=== PATIENT | female | born 1950 | race African-American/Black ===

== ENCOUNTER 2017-02-20 16:20 | Emergency (ER) | payer MEDICARE ==
[~2017-02-20] VITALS: Ht 175.3 cm; Wt 61.2 kg
[2017-02-20 16:39] VITALS: BP 171/76
[2017-02-20] MEDS ORDERED: DIPH25CA58 PO (16:46)
--- NOTE | 2017-02-20 16:48 | PHYS DOC ---
Adult General Chief Complaint Chief Complaint: INSECT BITE HPI HPI Patient is a 66 year old female presents to the emergency department with complaints of an insect bite beneath the right eye. Patient states she has mild amount of swelling. She has no visual disturbance or eye pain. She's had no shortness of breath. Review of Systems Review of Systems Constitutional: Denies fever or chills [] Eyes: Denies change in visual acuity, redness, or eye pain, mild swelling beneath left eye [] HENT: Denies nasal congestion or sore throat [] Respiratory: Denies cough or shortness of breath [] Cardiovascular: No additional information not addressed in HPI [] GI: Denies abdominal pain, nausea, vomiting, bloody stools or diarrhea [] : Denies dysuria or hematuria [] Musculoskeletal: Denies back pain or joint pain [] Integument: Denies rash or skin lesions [] Neurologic: Denies headache, focal weakness or sensory changes [] Endocrine: Denies polyuria or polydipsia [] All other systems were reviewed and found to be within normal limits, except as documented in this note. Physical Exam Physical Exam Constitutional: Well developed, well nourished, no acute distress, non-toxic appearance. [] Eyes: PERRLA, EOMI, fundoscopic exam benign, conjunctiva normal, no discharge.left lower eyelid mild swelling, no erythema [] Neck: Normal range of motion, no tenderness, supple, no stridor. [] Cardiovascular:Heart rate regular rhythm, no murmur [] Lungs & Thorax: Bilateral breath sounds clear to auscultation [] Skin: Warm, dry, no erythema, no rash. [] EKG EKG [] Radiology/Procedures Radiology/Procedures [] Course & Med Decision Making Course & Med Decision Making Pertinent Labs and Imaging studies reviewed. (See chart for details) [] Dragon Disclaimer Dragon Disclaimer This electronic medical record was generated, in whole or in part, using a voice recognition dictation system. Departure Departure Impression: Primary Impression: Insect bite Additional Impression: Allergic reaction Disposition: 01 HOME, SELF-CARE Condition: STABLE Referrals: UNKNOWN PCP NAME (PCP) [facility] Patient Instructions: Insect Bite Additional Instructions: Ice to affected area 10 minutes every 4 hours as needed for swelling Scripts Diphenhydramine Hcl (BENADRYL) 25 Mg Capsule 2 CAP PO Q6HRS Y for allergic reaction, #30 CAP 1 Refill Prov: YULIA WEISS QA TEST ANALYST 02/20/17 Problem Qualifiers Primary Impression: Insect bite Encounter type: initial encounter Qualified Codes: W57.XXXA - Bitten or stung by nonvenomous insect and other nonvenomous arthropods, initial encounter Additional Impression: Allergic reaction Encounter type: initial encounter Qualified Codes: T78.40XA - Allergy, unspecified, initial encounter YULIA WEISS QA TEST ANALYST Feb 20, 2017 16:48
== END 2017-02-20 16:58 | disposition home or self-care (01) ==
LOC: ER 16:20
DX: S00.262A Insect bite (nonvenomous) of left eyelid and periocular area, initial encounter (principal); T78.49XA Other allergy, initial encounter; W57.XXXA Bitten or stung by nonvenomous insect and other nonvenomous arthropods, initial encounter; Y93.89 Activity, other specified; Y92.89 Other specified places as the place of occurrence of the external cause; Y99.8 Other external cause status
CPT/HCPCS: 99282